=== PATIENT | female | born 1940 | race Caucasian/White ===

== ENCOUNTER 2017-11-18 16:52 | Inpatient (IN) | payer MEDICARE ==
[~2017-11-18] VITALS: Ht 149.9 cm; Wt 65.2 kg
[~2017-11-18 16:52] MED LIST: ALLO100T30 PO; CEFD300C37 PO; CEFO1VIA IVPB; EZET10TA18 PO; FURO-93 PO; FURO40TA6 PO; GLIP5TAB10 PO; LISI-420 PO; MELO7.5T5 PO; METF500T4 PO; METO50TA82 PO; METR500P29 IV; OMEP-110 PO; OMEP40CA6 PO; OXYC5TAB3 PO; PANT40GR IV; QUIN20TA PO; SPIR25TA PO; SPIR50TA PO; SUCR1ORA11 PO; TRAM-47 PO
[2017-11-18] MEDS ORDERED: pro air (18:16)
[2017-11-18] MEDS ORDERED: QUIN40TA PO (18:16)
[2017-11-18] MEDS ORDERED: CALC200V NAS (18:16)
[2017-11-18] MEDS ORDERED: FLUT9.9S NAS (18:16)
[2017-11-18] MEDS ORDERED: SIMV5TAB5 PO (18:16)
[2017-11-18] MEDS ORDERED: CLOT15CR4 TP (18:16)
[2017-11-18] MEDS ORDERED: FUROSEMIDE 40 MG/4 ML ONE (19:54)
[2017-11-18 19:59] LABS: BASOPHILS # (AUTO) 0.01 x10^3/uL (0-0.1); BASOPHILS % (AUTO) 0 % (0-1); EOSINOPHILS # (AUTO) 0.01 x10^3/uL (0-0.4); EOSINOPHILS % (AUTO) 0 % (1-7); LYMPHOCYTES % (AUTO) 13 % (22-44); MD NO; MEAN CORPUSCULAR HEMOGLOBIN 28.2 pg (27.0-34.8); MEAN CORPUSCULAR HGB CONC 31.4 g/dL (32.4-35.8); MEAN CORPUSCULAR VOLUME 89.8 fL (80-100); MEAN PLATELET VOLUME 7.2 fL (7.4-10.4); MONOCYTES # (AUTO) 0.35 x10^3/uL (0.2-0.8); MONOCYTES % (AUTO) 8 % (2-9); NEUTROPHILS # (AUTO) 3.75 x10^3/uL (1.8-6.8); NEUTROPHILS % (AUTO) 80 % (42-75); PLATELET COUNT 106 x10^3/uL (130-400); RED BLOOD COUNT 2.73 x10^6/uL (3.82-5.3); RED CELL DISTRIBUTION WIDTH 16.3 % (9.6-15.2)
[2017-11-18] MEDS ORDERED: FUROSEMIDE 40 MG/4 ML IV ONE (20:00)
[2017-11-18 20:09] LABS: ALANINE AMINOTRANSFERASE 22 U/L (12-78); ALBUMIN 2.8 g/dL (3.4-5.0); ANION GAP 10 mmol/L (5-15); CALCIUM 8.5 mg/dL (8.5-10.1); CHLORIDE 109 mmol/L (98-107); CREATININE 2.02 mg/dL (0.55-1.02)
[2017-11-18 20:11] LABS: ALKALINE PHOSPHATASE 130 U/L (45-117); BILIRUBIN,TOTAL 0.9 mg/dL (0.2-1.0); TOTAL PROTEIN 6.3 g/dL (6.4-8.2)
[2017-11-18] MEDS ORDERED: POLYETHYLENE GLYCOL 17 GM PACKET PO PRN (21:00)
[2017-11-18] MEDS ORDERED: BISACODYL 10 MG SUPP PR PRN (21:00)
[2017-11-18] MEDS ORDERED: ONDANSETRON 2MG/ML, 2ML IVPush PRN (21:00)
[2017-11-18 21:03] LABS: INTERNATIONAL NORMALIZED RATIO 1.21 (0.93-1.1); PROTHROMBIN TIME 12.4 Seconds (9.6-11.5)
[2017-11-18 21:33] VITALS: BP 134/63
[2017-11-18] MEDS ORDERED: LOPERAMIDE 2 MG CAPSULE PO ONE ×3 (22:30→23:00)
[2017-11-18 22:31] LABS: HEMOGLOBIN A1C 4.9 % (4.2-6.3)
[2017-11-18] MEDS: CLOTRIM/BETAMETH 1%/0.05% CRM TP SCH (22:52)
[2017-11-18] MEDS: INSULIN LISPRO 100 UNITS/ML, PEN SQ-INSULIN SCH (22:52)
[2017-11-18] MEDS: METOPROLOL TARTRATE 50 MG TABLET PO SCH (22:54)
[2017-11-18] MEDS: SIMVASTATIN 5 MG TABLET PO SCH (22:54)
[2017-11-18] MEDS: SODIUM CHLORIDE FLUSH 10ML SYR IVF SCH (22:54)
[2017-11-18] MEDS: SUCRALFATE 1 GM/10 ML UDC PO SCH (22:54)
[2017-11-18] MEDS ORDERED: ALBUTEROL SULFATE 2.5 MG/3 ML ONE (23:52)
[2017-11-19] VITALS (10 sets, daily range): BP systolic 117–140; BP diastolic 50–68
[2017-11-19] MEDS ORDERED: ALBUTEROL SULFATE 2.5 MG/3 ML NPPB PRN (01:00)
[2017-11-19 05:31] LABS: MEAN CORPUSCULAR HGB CONC 32.3 g/dL (32.4-35.8); MEAN CORPUSCULAR VOLUME 89.7 fL (80-100); RED BLOOD COUNT 2.54 x10^6/uL (3.82-5.3); RED CELL DISTRIBUTION WIDTH 16.3 % (9.6-15.2)
[2017-11-19 05:37] LABS: ALBUMIN 2.6 g/dL (3.4-5.0); ANION GAP 8 mmol/L (5-15); CALCIUM 8.2 mg/dL (8.5-10.1); CHLORIDE 111 mmol/L (98-107)
[2017-11-19 05:40] LABS: ALANINE AMINOTRANSFERASE 19 U/L (12-78); ALKALINE PHOSPHATASE 123 U/L (45-117); BILIRUBIN,TOTAL 0.9 mg/dL (0.2-1.0); CREATININE 1.84 mg/dL (0.55-1.02); TOTAL PROTEIN 5.8 g/dL (6.4-8.2)
[2017-11-19 06:08] LABS: BASOPHILS % (AUTO) 0 % (0-1); EOSINOPHILS # (AUTO) 0.05 x10^3/uL (0-0.4); EOSINOPHILS % (AUTO) 1 % (1-7); LYMPHOCYTES # (AUTO) 0.57 x10^3/uL (1-3.4); LYMPHOCYTES % (AUTO) 12 % (22-44); MD SCAN; MEAN PLATELET VOLUME 7.7 fL (7.4-10.4); MONOCYTES # (AUTO) 0.45 x10^3/uL (0.2-0.8); MONOCYTES % (AUTO) 9 % (2-9); NEUTROPHILS % (AUTO) 78 % (42-75); PLATELET COUNT 98 x10^3/uL (130-400)
[2017-11-19] MEDS: INSULIN LISPRO 100 UNITS/ML, PEN SQ-INSULIN SCH ×4 (07:00→20:10)
[2017-11-19] MEDS: CLOTRIM/BETAMETH 1%/0.05% CRM TP SCH ×2 (08:55→20:20)
[2017-11-19] MEDS: SENNA/DOCUSATE TABLET PO SCH (09:00)
[2017-11-19] MEDS: SODIUM CHLORIDE FLUSH 10ML SYR IVF SCH ×2 (09:00→21:00)
[2017-11-19] MEDS: FUROSEMIDE 20 MG/2 ML IV SCH ×2 (09:02→18:29)
[2017-11-19] MEDS: OMEPRAZOLE 20 MG CAPSULE.DR PO SCH (09:02)
[2017-11-19] MEDS: METOPROLOL TARTRATE 50 MG TABLET PO SCH ×2 (09:02→20:20)
[2017-11-19] MEDS: SUCRALFATE 1 GM/10 ML UDC PO SCH ×3 (09:02→20:19)
[2017-11-19] MEDS: ALLOPURINOL 100 MG TABLET PO SCH (09:07)
[2017-11-19 11:28] LABS: CLOSTRIDIUM DIFFICILE ANTIGEN NEGATIVE; CLOSTRIDIUM DIFFICILE TOXIN NEGATIVE (Negative)
[2017-11-19] MEDS ORDERED: PNEUMOCOCCAL 23 VACCINE IM-VACC ONE (11:30)
[2017-11-19] MEDS: CALCITONIN NASAL 200 UNITS/0.09ML, 3.7ML NAS SCH (11:49)
[2017-11-19] MEDS: FLUTICASONE NASAL SPRAY 16GM NAS SCH (11:49)
[2017-11-19] MEDS ORDERED: LIDOCAINE 1%, 20ML ONE (16:10)
[2017-11-19] MEDS ORDERED: LOPERAMIDE 2 MG CAPSULE PO SCH (17:00)
[2017-11-19] MEDS: LOPERAMIDE 2 MG CAPSULE PO SCH (17:25)
[2017-11-19] MEDS: ALBUMIN HUMAN 25% 100 ML IV SCH (18:29)
[2017-11-19] MEDS: SIMVASTATIN 5 MG TABLET PO SCH (20:20)
[2017-11-20 00:51] VITALS: BP 130/66
[2017-11-20 02:11] VITALS: BP 144/73
[2017-11-20] MEDS: ALBUMIN HUMAN 25% 100 ML IV SCH ×4 (02:13→20:30)
[2017-11-20 05:57] LABS: CHLORIDE 109 mmol/L (98-107)
[2017-11-20] MEDS: LOPERAMIDE 2 MG CAPSULE PO SCH ×3 (05:59→17:00)
[2017-11-20 06:12] LABS: MEAN CORPUSCULAR HEMOGLOBIN 29.9 pg (27.0-34.8); MEAN CORPUSCULAR HGB CONC 33.4 g/dL (32.4-35.8); MEAN CORPUSCULAR VOLUME 89.6 fL (80-100); MEAN PLATELET VOLUME 7.8 fL (7.4-10.4); PLATELET COUNT 71 x10^3/uL (130-400); RED BLOOD COUNT 3.16 x10^6/uL (3.82-5.3); RED CELL DISTRIBUTION WIDTH 15.6 % (9.6-15.2)
[2017-11-20 06:31] LABS: ALANINE AMINOTRANSFERASE 18 U/L (12-78); ALBUMIN 3.3 g/dL (3.4-5.0); ALKALINE PHOSPHATASE 104 U/L (45-117); ANION GAP 11 mmol/L (5-15); BILIRUBIN,TOTAL 1.7 mg/dL (0.2-1.0); CALCIUM 8.1 mg/dL (8.5-10.1); CREATININE 1.71 mg/dL (0.55-1.02)
[2017-11-20] MEDS: INSULIN LISPRO 100 UNITS/ML, PEN SQ-INSULIN SCH ×4 (07:00→21:00)
[2017-11-20 07:09] LABS: BASOPHILS % (AUTO) 0 % (0-1); EOSINOPHILS # (AUTO) 0.06 x10^3/uL (0-0.4); EOSINOPHILS % (AUTO) 1 % (1-7); LYMPHOCYTES # (AUTO) 0.52 x10^3/uL (1-3.4); LYMPHOCYTES % (AUTO) 12 % (22-44); MD SCAN; MONOCYTES # (AUTO) 0.41 x10^3/uL (0.2-0.8); MONOCYTES % (AUTO) 9 % (2-9); NEUTROPHILS # (AUTO) 3.44 x10^3/uL (1.8-6.8); NEUTROPHILS % (AUTO) 78 % (42-75)
[2017-11-20 07:46] VITALS: BP 145/60
[2017-11-20] MEDS ORDERED: ERGOCALCIFEROL 50,000 UNIT CAPSULE PO SCH (08:00)
[2017-11-20] MEDS: CLOTRIM/BETAMETH 1%/0.05% CRM TP SCH ×2 (09:00→21:00)
[2017-11-20] MEDS: SENNA/DOCUSATE TABLET PO SCH (09:00)
[2017-11-20] MEDS: SUCRALFATE 1 GM/10 ML UDC PO SCH ×3 (09:13→20:30)
[2017-11-20] MEDS: FLUTICASONE NASAL SPRAY 16GM NAS SCH (09:13)
[2017-11-20] MEDS: CALCITONIN NASAL 200 UNITS/0.09ML, 3.7ML NAS SCH (09:13)
[2017-11-20] MEDS: METOPROLOL TARTRATE 50 MG TABLET PO SCH ×2 (09:14→20:31)
[2017-11-20] MEDS: OMEPRAZOLE 20 MG CAPSULE.DR PO SCH (09:14)
[2017-11-20] MEDS: FUROSEMIDE 20 MG/2 ML IV SCH ×2 (09:15→17:20)
[2017-11-20] MEDS: SODIUM CHLORIDE FLUSH 10ML SYR IVF SCH ×2 (09:24→20:30)
[2017-11-20] MEDS: ALLOPURINOL 100 MG TABLET PO SCH (10:49)
[2017-11-20 13:12] VITALS: BP 150/55
[2017-11-20 20:00] VITALS: BP 149/69
[2017-11-20] MEDS: SIMVASTATIN 5 MG TABLET PO SCH (20:30)
[2017-11-21 02:30] VITALS: BP 167/72
[2017-11-21 04:45] LABS: MEAN CORPUSCULAR HEMOGLOBIN 29.7 pg (27.0-34.8); MEAN CORPUSCULAR HGB CONC 33.2 g/dL (32.4-35.8); MEAN CORPUSCULAR VOLUME 89.5 fL (80-100); RED BLOOD COUNT 3.03 x10^6/uL (3.82-5.3); RED CELL DISTRIBUTION WIDTH 15.9 % (9.6-15.2)
[2017-11-21 04:54] LABS: ANION GAP 9 mmol/L (5-15); CALCIUM 8.3 mg/dL (8.5-10.1); CHLORIDE 109 mmol/L (98-107)
[2017-11-21 04:55] LABS: CREATININE 1.56 mg/dL (0.55-1.02)
[2017-11-21 05:02] LABS: BASOPHILS # (AUTO) 0.01 x10^3/uL (0-0.1); BASOPHILS % (AUTO) 0 % (0-1); EOSINOPHILS # (AUTO) 0.04 x10^3/uL (0-0.4); EOSINOPHILS % (AUTO) 1 % (1-7); LYMPHOCYTES # (AUTO) 0.41 x10^3/uL (1-3.4); LYMPHOCYTES % (AUTO) 10 % (22-44); MD SCAN; MEAN PLATELET VOLUME 7.8 fL (7.4-10.4); MONOCYTES # (AUTO) 0.35 x10^3/uL (0.2-0.8); MONOCYTES % (AUTO) 9 % (2-9); NEUTROPHILS # (AUTO) 3.12 x10^3/uL (1.8-6.8); NEUTROPHILS % (AUTO) 80 % (42-75); PLATELET COUNT 56 x10^3/uL (130-400)
[2017-11-21] MEDS: LOPERAMIDE 2 MG CAPSULE PO SCH ×3 (06:00→17:00)
[2017-11-21 06:34] VITALS: BP 163/71
[2017-11-21] MEDS: INSULIN LISPRO 100 UNITS/ML, PEN SQ-INSULIN SCH ×4 (07:00→20:35)
[2017-11-21] MEDS: METOPROLOL TARTRATE 50 MG TABLET PO SCH ×2 (08:21→20:35)
[2017-11-21] MEDS: CALCITONIN NASAL 200 UNITS/0.09ML, 3.7ML NAS SCH (08:21)
[2017-11-21] MEDS: FLUTICASONE NASAL SPRAY 16GM NAS SCH (08:21)
[2017-11-21] MEDS: OMEPRAZOLE 20 MG CAPSULE.DR PO SCH (08:21)
[2017-11-21] MEDS: SUCRALFATE 1 GM/10 ML UDC PO SCH ×3 (08:21→20:35)
[2017-11-21] MEDS: FUROSEMIDE 20 MG/2 ML IV SCH ×2 (08:22→17:15)
[2017-11-21] MEDS: SENNA/DOCUSATE TABLET PO SCH ×2 (08:22→17:14)
[2017-11-21] MEDS: CLOTRIM/BETAMETH 1%/0.05% CRM TP SCH ×2 (08:22→20:36)
[2017-11-21] MEDS: SODIUM CHLORIDE FLUSH 10ML SYR IVF SCH ×2 (08:22→20:36)
[2017-11-21] MEDS: ALLOPURINOL 100 MG TABLET PO SCH (08:22)
[2017-11-21] MEDS: LISINOPRIL 20 MG TABLET PO SCH (12:24)
[2017-11-21 13:39] VITALS: BP 144/65
[2017-11-21 18:51] VITALS: BP 138/61
[2017-11-21] MEDS: SIMVASTATIN 5 MG TABLET PO SCH (20:35)
[2017-11-22 02:02] VITALS: BP 127/51
[2017-11-22 05:23] LABS: ANION GAP 9 mmol/L (5-15); CHLORIDE 109 mmol/L (98-107)
[2017-11-22 05:28] LABS: ALANINE AMINOTRANSFERASE 12 U/L (12-78); ALKALINE PHOSPHATASE 93 U/L (45-117); BILIRUBIN,TOTAL 1.4 mg/dL (0.2-1.0); CREATININE 1.33 mg/dL (0.55-1.02); TOTAL PROTEIN 5.3 g/dL (6.4-8.2)
[2017-11-22] MEDS: LOPERAMIDE 2 MG CAPSULE PO SCH ×2 (06:00→11:00)
[2017-11-22 06:57] VITALS: BP 133/59
[2017-11-22] MEDS: INSULIN LISPRO 100 UNITS/ML, PEN SQ-INSULIN SCH ×2 (07:00→11:39)
[2017-11-22] MEDS: FUROSEMIDE 20 MG/2 ML IV SCH (07:43)
[2017-11-22] MEDS: SODIUM CHLORIDE FLUSH 10ML SYR IVF SCH (08:46)
[2017-11-22] MEDS: METOPROLOL TARTRATE 50 MG TABLET PO SCH (08:47)
[2017-11-22] MEDS: ALLOPURINOL 100 MG TABLET PO SCH (08:47)
[2017-11-22] MEDS: SENNA/DOCUSATE TABLET PO SCH (08:47)
[2017-11-22] MEDS: OMEPRAZOLE 20 MG CAPSULE.DR PO SCH (08:47)
[2017-11-22] MEDS: CALCITONIN NASAL 200 UNITS/0.09ML, 3.7ML NAS SCH (08:48)
[2017-11-22] MEDS: CLOTRIM/BETAMETH 1%/0.05% CRM TP SCH (08:48)
[2017-11-22] MEDS: FLUTICASONE NASAL SPRAY 16GM NAS SCH (08:48)
[2017-11-22] MEDS: LISINOPRIL 20 MG TABLET PO SCH (08:48)
[2017-11-22] MEDS: SUCRALFATE 1 GM/10 ML UDC PO SCH (08:48)
[2017-11-22 13:32] VITALS: BP 135/54
[2017-11-22] MEDS ORDERED: FURO40TA6 PO (13:51)
[2017-11-22] MEDS ORDERED: LISI-170 PO (13:51)
[2017-11-22] MEDS ORDERED: METO50TA82 PO (13:51)
[2017-11-22] MEDS ORDERED: MAGN64TA7 PO (13:51)
[2017-11-22] MEDS ORDERED: ERGO500017 PO (13:51)
[2017-11-22] MEDS ORDERED: POTA20TA91 PO (13:51)
== END 2017-11-22 15:38 | disposition home health service (06) | DRG 432 ==
LOC: ED 21:03 → EDIP 21:16 → 4WST 21:44 → DCLOUNGE 11-22 15:26
PROVIDERS: ADMIT Hospitalist; ATTEND Hospitalist
PROC: 30233N1 Transfusion of Nonautologous Red Blood Cells into Peripheral Vein, Percutaneous Approach (ICD-10-PCS; principal; 2017-11-19)
PROC: 0W9G3ZZ Drainage of Peritoneal Cavity, Percutaneous Approach (ICD-10-PCS; 2017-11-19)
PROC: 0W9B3ZZ Drainage of Left Pleural Cavity, Percutaneous Approach (ICD-10-PCS; 2017-11-21)
PROC: 0W993ZZ Drainage of Right Pleural Cavity, Percutaneous Approach (ICD-10-PCS; 2017-11-21)
DX: K70.31 Alcoholic cirrhosis of liver with ascites (principal); I50.21 Acute systolic (congestive) heart failure; J96.01 Acute respiratory failure with hypoxia; N17.0 Acute kidney failure with tubular necrosis; E43 Unspecified severe protein-calorie malnutrition; D68.59 Other primary thrombophilia; E11.21 Type 2 diabetes mellitus with diabetic nephropathy; D69.6 Thrombocytopenia, unspecified; I13.0 Hypertensive heart and chronic kidney disease with heart failure and stage 1 through stage 4 chronic kidney disease, or unspecified chronic kidney disease; J44.1 Chronic obstructive pulmonary disease with (acute) exacerbation; K76.6 Portal hypertension; E11.22 Type 2 diabetes mellitus with diabetic chronic kidney disease; D64.9 Anemia, unspecified; E78.5 Hyperlipidemia, unspecified; E11.40 Type 2 diabetes mellitus with diabetic neuropathy, unspecified; E55.9 Vitamin D deficiency, unspecified; I27.20 Pulmonary hypertension, unspecified; I25.2 Old myocardial infarction; I34.0 Nonrheumatic mitral (valve) insufficiency; N18.2 Chronic kidney disease, stage 2 (mild); Z66 Do not resuscitate; Z85.41 Personal history of malignant neoplasm of cervix uteri; Z87.891 Personal history of nicotine dependence; Z68.29 Body mass index [BMI] 29.0-29.9, adult
CPT/HCPCS: 32555; 36415; 36430; 49083; 71046; 80048; 80053; 82042; 82306; 82607; 82962; 83036; 83615; 83735; 83880; 84100; 84157; 85025; 85610; 86850; 86870; 86900; 86902; 86922; 86923; 87070; 87205; 87324; 89051; 90732; 93005; 93306; 94640; 96374; J1940; J3490; P9047; J1815; P9016

== ENCOUNTER 2018-03-01 18:28 | Inpatient (IN) | payer MEDICARE ==
[~2018-03-01] VITALS: Ht 152.4 cm; Wt 66.6 kg
[~2018-03-01 18:28] MED LIST changes: +CALC200V NAS; +CLOT15CR4 TP; +ERGO500017 PO; +FLUT9.9S NAS; +LISI-170 PO; +MAGN64TA7 PO; +POTA20TA91 PO; +QUIN40TA PO; +SIMV5TAB5 PO; +pro air
[2018-03-01 19:34] LABS: MD YES; MEAN CORPUSCULAR HEMOGLOBIN 27.8 pg (27.0-34.8); MEAN CORPUSCULAR HGB CONC 33.3 g/dL (32.4-35.8); MEAN CORPUSCULAR VOLUME 83.6 fL (80-100); MEAN PLATELET VOLUME 7.1 fL (7.4-10.4); PLATELET COUNT 82 x10^3/uL (130-400); RED BLOOD COUNT 2.66 x10^6/uL (3.82-5.3); RED CELL DISTRIBUTION WIDTH 17.1 % (9.6-15.2)
[2018-03-01 19:41] LABS: INTERNATIONAL NORMALIZED RATIO 1.1 (0.93-1.1); PROTHROMBIN TIME 11.4 Seconds (9.6-11.5)
[2018-03-01 19:44] LABS: ALANINE AMINOTRANSFERASE 28 U/L (12-78); ANION GAP 12 mmol/L (5-15); CALCIUM 8.1 mg/dL (8.5-10.1); CHLORIDE 89 mmol/L (98-107)
[2018-03-01 19:47] LABS: ALKALINE PHOSPHATASE 139 U/L (45-117); BILIRUBIN,TOTAL 0.6 mg/dL (0.2-1.0); TOTAL PROTEIN 6.2 g/dL (6.4-8.2)
[2018-03-01] MEDS ORDERED: FURO20TA3 PO (19:56)
[2018-03-01 19:58] LABS: LYMPH#(MANUAL) 0.29 x10^3/uL (1-3.4); LYMPHS% (MANUAL) 7 % (22-44); MONOS#(MANUAL) 0.13 x10^3/uL (0.3-2.7); MONOS% (MANUAL) 3 % (2-9); SEG#(MANUAL) 3.78 x10^3/uL (1.8-6.8); SEGS% (MANUAL) 90 % (42-75)
[2018-03-01 19:59] LABS: ACANTHOCYTES 1+; ANISOCYTOSIS 2+; MICROCYTOSIS 1+
[2018-03-01 20:00] LABS: <PLATELET ESTIMATE> DECREASED; <PLT MORPHOLOGY> NORMAL PLT MORPH
[2018-03-01] MEDS ORDERED: SODIUM CHLORIDE 0.9% 1,000 ML IV ONE (20:01)
[2018-03-01] MEDS ORDERED: SODIUM CHLORIDE 0.9% 1,000 ML IV SCH (20:34)
[2018-03-01] MEDS ORDERED: POLYETHYLENE GLYCOL 17 GM PACKET PO PRN (21:00)
[2018-03-01] MEDS ORDERED: SODIUM CHLORIDE FLUSH 10ML SYR IVF PRN (21:00)
[2018-03-01] MEDS ORDERED: NS + 20MEQ KCL 1,000 ML IV SCH (21:00)
[2018-03-01] MEDS ORDERED: ONDANSETRON 2MG/ML, 2ML IVPush PRN (21:00)
[2018-03-01] MEDS ORDERED: ERGOCALCIFEROL 50,000 UNIT CAPSULE PO SCH (21:00)
[2018-03-01] MEDS ORDERED: BISACODYL 10 MG SUPP PR PRN (21:00)
[2018-03-01] MEDS ORDERED: ALBUTEROL SULFATE 2.5 MG/3 ML NPPB PRN (22:30)
[2018-03-01] MEDS: SIMVASTATIN 5 MG TABLET PO SCH (22:32)
[2018-03-01] MEDS: METOPROLOL TARTRATE 50 MG TABLET PO SCH (22:34)
[2018-03-02] VITALS (13 sets, daily range): BP systolic 107–137; BP diastolic 54–70
[2018-03-02] MEDS ORDERED: CALC3.7S5 NS (04:25)
[2018-03-02] MEDS ORDERED: SUCR1TAB PO (05:18)
[2018-03-02] MEDS ORDERED: GLUC15006 PO (05:18)
[2018-03-02] MEDS ORDERED: GLIP5TAB10 PO (05:18)
[2018-03-02] MEDS: SENNA/DOCUSATE TABLET PO SCH (09:27)
[2018-03-02] MEDS: OMEPRAZOLE 20 MG CAPSULE.DR PO SCH (09:28)
[2018-03-02] MEDS: METOPROLOL TARTRATE 50 MG TABLET PO SCH ×2 (09:28→21:24)
[2018-03-02 09:35] LABS: ALANINE AMINOTRANSFERASE 26 U/L (12-78); ALBUMIN 2.5 g/dL (3.4-5.0); ANION GAP 9 mmol/L (5-15); CALCIUM 7.6 mg/dL (8.5-10.1); CHLORIDE 94 mmol/L (98-107); CREATININE 1.42 mg/dL (0.55-1.02)
[2018-03-02 09:37] LABS: ALKALINE PHOSPHATASE 127 U/L (45-117); BILIRUBIN,TOTAL 2.1 mg/dL (0.2-1.0); TOTAL PROTEIN 5.4 g/dL (6.4-8.2)
[2018-03-02 09:42] LABS: BASOPHILS # (AUTO) 0.05 x10^3/uL (0-0.1); BASOPHILS % (AUTO) 1 % (0-1); EOSINOPHILS # (AUTO) 0.04 x10^3/uL (0-0.4); EOSINOPHILS % (AUTO) 1 % (1-7); LYMPHOCYTES # (AUTO) 0.37 x10^3/uL (1-3.4); LYMPHOCYTES % (AUTO) 7 % (22-44); MD SCAN; MEAN CORPUSCULAR HEMOGLOBIN 27.6 pg (27.0-34.8); MEAN CORPUSCULAR VOLUME 83.7 fL (80-100); MONOCYTES # (AUTO) 0.26 x10^3/uL (0.2-0.8); MONOCYTES % (AUTO) 5 % (2-9); NEUTROPHILS # (AUTO) 4.79 x10^3/uL (1.8-6.8); NEUTROPHILS % (AUTO) 87 % (42-75); PLATELET COUNT 75 x10^3/uL (130-400); RED BLOOD COUNT 3.22 x10^6/uL (3.82-5.3); RED CELL DISTRIBUTION WIDTH 16.1 % (9.6-15.2)
[2018-03-02] MEDS: SUCRALFATE 1 GM TABLET PO SCH ×2 (17:27→21:24)
[2018-03-02 17:38] LABS: MEAN CORPUSCULAR HEMOGLOBIN 28.2 pg (27.0-34.8); MEAN CORPUSCULAR HGB CONC 33.6 g/dL (32.4-35.8); MEAN CORPUSCULAR VOLUME 83.7 fL (80-100); MEAN PLATELET VOLUME 7.3 fL (7.4-10.4); PLATELET COUNT 78 x10^3/uL (130-400); RED BLOOD COUNT 3.58 x10^6/uL (3.82-5.3); RED CELL DISTRIBUTION WIDTH 16.1 % (9.6-15.2)
[2018-03-02 17:46] LABS: ANION GAP 10 mmol/L (5-15); CALCIUM 8.5 mg/dL (8.5-10.1); CHLORIDE 95 mmol/L (98-107); CREATININE 1.57 mg/dL (0.55-1.02)
[2018-03-02 17:54] LABS: BASOPHILS # (AUTO) 0.01 x10^3/uL (0-0.1); BASOPHILS % (AUTO) 0 % (0-1); EOSINOPHILS # (AUTO) 0.03 x10^3/uL (0-0.4); EOSINOPHILS % (AUTO) 0 % (1-7); LYMPHOCYTES # (AUTO) 0.48 x10^3/uL (1-3.4); LYMPHOCYTES % (AUTO) 7 % (22-44); MD SCAN; MONOCYTES % (AUTO) 4 % (2-9); NEUTROPHILS # (AUTO) 6.24 x10^3/uL (1.8-6.8); NEUTROPHILS % (AUTO) 89 % (42-75)
[2018-03-02] MEDS ORDERED: NS + 20MEQ KCL 1,000 ML IV SCH (21:00)
[2018-03-02] MEDS: SIMVASTATIN 5 MG TABLET PO SCH (21:24)
[2018-03-03 00:46] VITALS: BP 116/70
[2018-03-03 05:20] LABS: MEAN CORPUSCULAR HEMOGLOBIN 27.7 pg (27.0-34.8); MEAN CORPUSCULAR HGB CONC 32.7 g/dL (32.4-35.8); MEAN CORPUSCULAR VOLUME 84.7 fL (80-100); RED CELL DISTRIBUTION WIDTH 16.8 % (9.6-15.2)
[2018-03-03 05:27] LABS: CHLORIDE 98 mmol/L (98-107)
[2018-03-03 05:31] LABS: ALANINE AMINOTRANSFERASE 22 U/L (12-78); ALBUMIN 2.3 g/dL (3.4-5.0); ALKALINE PHOSPHATASE 105 U/L (45-117); ANION GAP 10 mmol/L (5-15); BILIRUBIN,TOTAL 0.9 mg/dL (0.2-1.0); CREATININE 1.52 mg/dL (0.55-1.02)
[2018-03-03 05:39] LABS: BASOPHILS # (AUTO) 0.01 x10^3/uL (0-0.1); BASOPHILS % (AUTO) 0 % (0-1); EOSINOPHILS # (AUTO) 0.08 x10^3/uL (0-0.4); EOSINOPHILS % (AUTO) 2 % (1-7); LYMPHOCYTES # (AUTO) 0.45 x10^3/uL (1-3.4); LYMPHOCYTES % (AUTO) 9 % (22-44); MD SCAN; MEAN PLATELET VOLUME 7.7 fL (7.4-10.4); MONOCYTES # (AUTO) 0.39 x10^3/uL (0.2-0.8); MONOCYTES % (AUTO) 8 % (2-9); NEUTROPHILS # (AUTO) 4.22 x10^3/uL (1.8-6.8); NEUTROPHILS % (AUTO) 82 % (42-75); PLATELET COUNT 63 x10^3/uL (130-400)
[2018-03-03 06:27] VITALS: BP 115/53
[2018-03-03] MEDS: SENNA/DOCUSATE TABLET PO SCH ×2 (09:00→10:04)
[2018-03-03] MEDS: METOPROLOL TARTRATE 50 MG TABLET PO SCH ×2 (10:03→20:37)
[2018-03-03] MEDS: ALLOPURINOL 100 MG TABLET PO SCH (10:04)
[2018-03-03] MEDS: LISINOPRIL 20 MG TABLET PO SCH (10:04)
[2018-03-03] MEDS: SUCRALFATE 1 GM TABLET PO SCH ×3 (10:04→20:36)
[2018-03-03] MEDS: OMEPRAZOLE 20 MG CAPSULE.DR PO SCH (10:04)
[2018-03-03 14:03] VITALS: BP 138/70
[2018-03-03 20:32] VITALS: BP 138/62
[2018-03-03] MEDS: SIMVASTATIN 5 MG TABLET PO SCH (20:36)
[2018-03-04 01:19] VITALS: BP 127/67
[2018-03-04 05:49] LABS: ANION GAP 10 mmol/L (5-15); CALCIUM 8.1 mg/dL (8.5-10.1); CHLORIDE 97 mmol/L (98-107)
[2018-03-04 05:50] LABS: CREATININE 1.59 mg/dL (0.55-1.02)
[2018-03-04 05:53] LABS: MEAN CORPUSCULAR HEMOGLOBIN 27.8 pg (27.0-34.8); MEAN CORPUSCULAR HGB CONC 32.7 g/dL (32.4-35.8); MEAN CORPUSCULAR VOLUME 84.9 fL (80-100); RED BLOOD COUNT 3.12 x10^6/uL (3.82-5.3); RED CELL DISTRIBUTION WIDTH 16.5 % (9.6-15.2)
[2018-03-04 06:16] LABS: BASOPHILS # (AUTO) 0.01 x10^3/uL (0-0.1); BASOPHILS % (AUTO) 0 % (0-1); EOSINOPHILS # (AUTO) 0.03 x10^3/uL (0-0.4); EOSINOPHILS % (AUTO) 1 % (1-7); LYMPHOCYTES # (AUTO) 0.57 x10^3/uL (1-3.4); LYMPHOCYTES % (AUTO) 9 % (22-44); MD SCAN; MEAN PLATELET VOLUME 7.8 fL (7.4-10.4); MONOCYTES # (AUTO) 0.61 x10^3/uL (0.2-0.8); MONOCYTES % (AUTO) 10 % (2-9); NEUTROPHILS % (AUTO) 81 % (42-75); PLATELET COUNT 74 x10^3/uL (130-400)
[2018-03-04 06:43] VITALS: BP 138/68
[2018-03-04] MEDS: SENNA/DOCUSATE TABLET PO SCH (09:00)
[2018-03-04] MEDS: ALLOPURINOL 100 MG TABLET PO SCH (12:28)
[2018-03-04] MEDS: OMEPRAZOLE 20 MG CAPSULE.DR PO SCH (12:28)
[2018-03-04] MEDS: METOPROLOL TARTRATE 50 MG TABLET PO SCH ×2 (12:28→20:44)
[2018-03-04] MEDS: SUCRALFATE 1 GM TABLET PO SCH ×3 (12:29→20:43)
[2018-03-04] MEDS: LISINOPRIL 20 MG TABLET PO SCH (12:29)
[2018-03-04 13:18] LABS: OSMOLALITY,URINE 245 mOsm/kg (500-850)
[2018-03-04 14:30] VITALS: BP 130/70
[2018-03-04 19:18] VITALS: BP 152/72
[2018-03-04] MEDS: SIMVASTATIN 5 MG TABLET PO SCH (20:43)
[2018-03-05 02:41] VITALS: BP 135/76
[2018-03-05 05:59] LABS: ALBUMIN 2.2 g/dL (3.4-5.0); ANION GAP 9 mmol/L (5-15); CALCIUM 8.2 mg/dL (8.5-10.1); CHLORIDE 98 mmol/L (98-107)
[2018-03-05 06:03] LABS: ALANINE AMINOTRANSFERASE 29 U/L (12-78); ALKALINE PHOSPHATASE 144 U/L (45-117); BILIRUBIN,TOTAL 0.8 mg/dL (0.2-1.0); CREATININE 1.66 mg/dL (0.55-1.02); MEAN CORPUSCULAR HEMOGLOBIN 27.7 pg (27.0-34.8); MEAN CORPUSCULAR HGB CONC 32.8 g/dL (32.4-35.8); MEAN CORPUSCULAR VOLUME 84.5 fL (80-100); MEAN PLATELET VOLUME 7.6 fL (7.4-10.4); PLATELET COUNT 80 x10^3/uL (130-400); RED BLOOD COUNT 3.02 x10^6/uL (3.82-5.3); RED CELL DISTRIBUTION WIDTH 16.4 % (9.6-15.2); TOTAL PROTEIN 5.1 g/dL (6.4-8.2)
[2018-03-05 06:24] LABS: BASOPHILS # (AUTO) 0.01 x10^3/uL (0-0.1); BASOPHILS % (AUTO) 0 % (0-1); EOSINOPHILS # (AUTO) 0.05 x10^3/uL (0-0.4); EOSINOPHILS % (AUTO) 1 % (1-7); LYMPHOCYTES # (AUTO) 0.48 x10^3/uL (1-3.4); LYMPHOCYTES % (AUTO) 10 % (22-44); MD SCAN; MONOCYTES # (AUTO) 0.53 x10^3/uL (0.2-0.8); MONOCYTES % (AUTO) 11 % (2-9); NEUTROPHILS # (AUTO) 3.67 x10^3/uL (1.8-6.8); NEUTROPHILS % (AUTO) 77 % (42-75)
[2018-03-05 07:19] VITALS: BP 135/64
[2018-03-05] MEDS: OMEPRAZOLE 20 MG CAPSULE.DR PO SCH (08:08)
[2018-03-05] MEDS: ALLOPURINOL 100 MG TABLET PO SCH (08:08)
[2018-03-05] MEDS: SUCRALFATE 1 GM TABLET PO SCH (08:08)
[2018-03-05] MEDS: LISINOPRIL 20 MG TABLET PO SCH (08:09)
[2018-03-05] MEDS: METOPROLOL TARTRATE 50 MG TABLET PO SCH (08:09)
[2018-03-05] MEDS: SENNA/DOCUSATE TABLET PO SCH (08:12)
== END 2018-03-05 10:26 | disposition home or self-care (01) | DRG 432 ==
LOC: ED 21:06 → EDIP 21:14 → 3NE 21:30
PROVIDERS: ADMIT Hospitalist; ATTEND Hospitalist
PROC: 30233N1 Transfusion of Nonautologous Red Blood Cells into Peripheral Vein, Percutaneous Approach (ICD-10-PCS; principal; 2018-03-02)
DX: K70.31 Alcoholic cirrhosis of liver with ascites (principal); J96.01 Acute respiratory failure with hypoxia; E44.0 Moderate protein-calorie malnutrition; J90 Pleural effusion, not elsewhere classified; D69.6 Thrombocytopenia, unspecified; E11.21 Type 2 diabetes mellitus with diabetic nephropathy; N18.3 Chronic kidney disease, stage 3 (moderate); E11.22 Type 2 diabetes mellitus with diabetic chronic kidney disease; E11.40 Type 2 diabetes mellitus with diabetic neuropathy, unspecified; I13.0 Hypertensive heart and chronic kidney disease with heart failure and stage 1 through stage 4 chronic kidney disease, or unspecified chronic kidney disease; I50.22 Chronic systolic (congestive) heart failure; E87.1 Hypo-osmolality and hyponatremia; J44.0 Chronic obstructive pulmonary disease with (acute) lower respiratory infection; K76.6 Portal hypertension; J98.11 Atelectasis; Z66 Do not resuscitate; D63.8 Anemia in other chronic diseases classified elsewhere; E87.6 Hypokalemia; F10.20 Alcohol dependence, uncomplicated; Z60.2 Problems related to living alone; E66.9 Obesity, unspecified; E78.5 Hyperlipidemia, unspecified; E86.0 Dehydration; K64.9 Unspecified hemorrhoids; Z80.0 Family history of malignant neoplasm of digestive organs; Z80.1 Family history of malignant neoplasm of trachea, bronchus and lung; Z82.3 Family history of stroke; Z82.5 Family history of asthma and other chronic lower respiratory diseases; Z85.41 Personal history of malignant neoplasm of cervix uteri; Z87.891 Personal history of nicotine dependence; Z90.49 Acquired absence of other specified parts of digestive tract; Z88.5 Allergy status to narcotic agent; Z88.2 Allergy status to sulfonamides; Z88.8 Allergy status to other drugs, medicaments and biological substances; Z88.6 Allergy status to analgesic agent; Z88.1 Allergy status to other antibiotic agents; Z91.041 Radiographic dye allergy status
CPT/HCPCS: 36415; 36430; 71045; 80048; 80053; 83036; 83690; 83930; 83935; 85025; 85610; 85730; 86850; 86870; 86900; 86902; 86922; 86923; 93005; 96360; 99285; J3480; J7030; P9016

== ENCOUNTER 2018-03-09 16:46 | Inpatient (IN) | payer MEDICARE ==
[~2018-03-09] VITALS: Ht 152.4 cm; Wt 87.9 kg
[~2018-03-09 16:46] MED LIST changes: +CALC3.7S5 NS; +FURO20TA3 PO; +GLUC15006 PO; +SUCR1TAB PO
[2018-03-09] MEDS ORDERED: SODIUM CHLORIDE FLUSH 10ML SYR IVF ONE (17:30)
[2018-03-09 17:31] LABS: ALANINE AMINOTRANSFERASE 29 U/L (12-78); ALBUMIN 2.6 g/dL (3.4-5.0); ANION GAP 7 mmol/L (5-15); CHLORIDE 98 mmol/L (98-107)
[2018-03-09 17:36] LABS: CREATININE 1.57 mg/dL (0.55-1.02)
[2018-03-09 17:37] LABS: ALKALINE PHOSPHATASE 209 U/L (45-117); BILIRUBIN,TOTAL 0.5 mg/dL (0.2-1.0); TOTAL PROTEIN 5.9 g/dL (6.4-8.2)
[2018-03-09 17:45] LABS: BASOPHILS # (AUTO) 0.01 x10^3/uL (0-0.1); BASOPHILS % (AUTO) 0 % (0-1); EOSINOPHILS % (AUTO) 0 % (1-7); LYMPHOCYTES # (AUTO) 0.58 x10^3/uL (1-3.4); LYMPHOCYTES % (AUTO) 13 % (22-44); MD NO; MEAN CORPUSCULAR HEMOGLOBIN 27.3 pg (27.0-34.8); MEAN CORPUSCULAR HGB CONC 32.7 g/dL (32.4-35.8); MEAN CORPUSCULAR VOLUME 83.4 fL (80-100); MEAN PLATELET VOLUME 6.9 fL (7.4-10.4); MONOCYTES # (AUTO) 0.44 x10^3/uL (0.2-0.8); MONOCYTES % (AUTO) 10 % (2-9); NEUTROPHILS # (AUTO) 3.34 x10^3/uL (1.8-6.8); NEUTROPHILS % (AUTO) 76 % (42-75); PLATELET COUNT 116 x10^3/uL (130-400); RED BLOOD COUNT 3.35 x10^6/uL (3.82-5.3)
[2018-03-09 18:23] LABS: INTERNATIONAL NORMALIZED RATIO 1.1 (0.93-1.1); PROTHROMBIN TIME 11.4 Seconds (9.6-11.5)
[2018-03-09 18:46] LABS: MICROSCOPIC AUTO
[2018-03-09 18:48] LABS: CULTURE INDICATED? NO
[2018-03-09] MEDS ORDERED: SODIUM CHLORIDE FLUSH 10ML SYR IVF PRN (20:00)
[2018-03-09] MEDS ORDERED: LIDOCAINE 2%, 20ML ONE (20:08)
[2018-03-09] MEDS ORDERED: ONDANSETRON 2MG/ML, 2ML IVPush PRN (20:30)
[2018-03-09] MEDS ORDERED: POLYETHYLENE GLYCOL 17 GM PACKET PO PRN (20:30)
[2018-03-09] MEDS ORDERED: BISACODYL 10 MG SUPP PR PRN (20:30)
[2018-03-09] MEDS ORDERED: ERGOCALCIFEROL 50,000 UNIT CAPSULE PO SCH (20:30)
[2018-03-09] MEDS: SUCRALFATE 1 GM TABLET PO SCH (21:00)
[2018-03-09] MEDS ORDERED: FURO40TA6 PO (21:20)
[2018-03-09 22:25] VITALS: BP 161/67
[2018-03-09] MEDS: HEPARIN 5,000 UNITS/ML, 1ML SQ SCH (22:58)
[2018-03-09] MEDS: FUROSEMIDE 20 MG/2 ML IV SCH (22:58)
[2018-03-09] MEDS: LACTULOSE 20 GM/30 ML UDC PO SCH (22:58)
[2018-03-09] MEDS: METOPROLOL TARTRATE 50 MG TABLET PO SCH (22:59)
[2018-03-09] MEDS: SODIUM CHLORIDE FLUSH 10ML SYR IVF SCH (22:59)
[2018-03-09] MEDS: SIMVASTATIN 5 MG TABLET PO SCH (22:59)
[2018-03-10 02:00] VITALS: BP 148/54
[2018-03-10 05:10] LABS: CALCIUM 8.1 mg/dL (8.5-10.1); CHLORIDE 99 mmol/L (98-107)
[2018-03-10 05:11] LABS: BASOPHILS # (AUTO) 0.01 x10^3/uL (0-0.1); BASOPHILS % (AUTO) 0 % (0-1); EOSINOPHILS # (AUTO) 0.07 x10^3/uL (0-0.4); EOSINOPHILS % (AUTO) 2 % (1-7); LYMPHOCYTES # (AUTO) 0.61 x10^3/uL (1-3.4); LYMPHOCYTES % (AUTO) 18 % (22-44); MD NO; MEAN CORPUSCULAR HEMOGLOBIN 27.5 pg (27.0-34.8); MEAN CORPUSCULAR HGB CONC 32.9 g/dL (32.4-35.8); MEAN CORPUSCULAR VOLUME 83.4 fL (80-100); MEAN PLATELET VOLUME 7.2 fL (7.4-10.4); MONOCYTES # (AUTO) 0.38 x10^3/uL (0.2-0.8); MONOCYTES % (AUTO) 11 % (2-9); NEUTROPHILS # (AUTO) 2.37 x10^3/uL (1.8-6.8); NEUTROPHILS % (AUTO) 69 % (42-75); PLATELET COUNT 105 x10^3/uL (130-400); RED BLOOD COUNT 3.09 x10^6/uL (3.82-5.3); RED CELL DISTRIBUTION WIDTH 17.1 % (9.6-15.2)
[2018-03-10 05:15] LABS: ALANINE AMINOTRANSFERASE 25 U/L (12-78); ALBUMIN 2.3 g/dL (3.4-5.0); ALKALINE PHOSPHATASE 163 U/L (45-117); ANION GAP 8 mmol/L (5-15); BILIRUBIN,TOTAL 0.6 mg/dL (0.2-1.0); CREATININE 1.48 mg/dL (0.55-1.02); TOTAL PROTEIN 5.2 g/dL (6.4-8.2)
[2018-03-10] MEDS: FUROSEMIDE 20 MG/2 ML IV SCH ×2 (07:32→15:53)
[2018-03-10] MEDS: HEPARIN 5,000 UNITS/ML, 1ML SQ SCH ×2 (07:33→15:53)
[2018-03-10] MEDS: SUCRALFATE 1 GM TABLET PO SCH ×3 (07:33→15:53)
[2018-03-10 08:10] VITALS: BP 154/59
[2018-03-10] MEDS: CALCITONIN NASAL 200 UNITS/0.09ML, 3.7ML NAS SCH (09:00)
[2018-03-10] MEDS: TEMPLATE NON-FORMULARY MED. (Glucosamine Hcl** 1,500 MG) HOMEMEDPO SCH (09:00)
[2018-03-10] MEDS: SENNA/DOCUSATE TABLET PO SCH (09:00)
[2018-03-10] MEDS: LACTULOSE 20 GM/30 ML UDC PO SCH ×2 (09:26→22:26)
[2018-03-10] MEDS: METOPROLOL TARTRATE 50 MG TABLET PO SCH (09:27)
[2018-03-10] MEDS: SODIUM CHLORIDE FLUSH 10ML SYR IVF SCH ×2 (09:27→22:28)
[2018-03-10] MEDS: OMEPRAZOLE 20 MG CAPSULE.DR PO SCH (09:27)
[2018-03-10] MEDS: ALLOPURINOL 100 MG TABLET PO SCH (09:27)
[2018-03-10] MEDS: LISINOPRIL 20 MG TABLET PO SCH (09:27)
[2018-03-10] MEDS ORDERED: DEXTROSE 4 GM TAB.CHEW PO PRN (10:00)
[2018-03-10] MEDS ORDERED: GLUCAGON 1 MG IM PRN (10:00)
[2018-03-10] MEDS ORDERED: DEXTROSE 50%, 50ML SYRINGE IVPush PRN (10:00)
[2018-03-10] MEDS: INSULIN LISPRO 100 UNITS/ML, PEN SQ-INSULIN SCH ×3 (11:00→21:00)
[2018-03-10 12:27] VITALS: BP 162/64
[2018-03-10 19:08] VITALS: BP 148/62
[2018-03-10] MEDS: SIMVASTATIN 5 MG TABLET PO SCH (22:27)
[2018-03-10] MEDS: METOPROLOL TARTRATE 25 MG TABLET PO SCH (22:27)
[2018-03-11] MEDS: HEPARIN 5,000 UNITS/ML, 1ML SQ SCH ×2 (00:06→08:00)
[2018-03-11 00:23] VITALS: BP 134/53
[2018-03-11 05:14] LABS: BASOPHILS # (AUTO) 0.01 x10^3/uL (0-0.1); BASOPHILS % (AUTO) 0 % (0-1); EOSINOPHILS # (AUTO) 0.16 x10^3/uL (0-0.4); EOSINOPHILS % (AUTO) 4 % (1-7); LYMPHOCYTES # (AUTO) 0.71 x10^3/uL (1-3.4); LYMPHOCYTES % (AUTO) 19 % (22-44); MD NO; MEAN CORPUSCULAR HEMOGLOBIN 27.5 pg (27.0-34.8); MEAN CORPUSCULAR HGB CONC 32.8 g/dL (32.4-35.8); MEAN CORPUSCULAR VOLUME 83.7 fL (80-100); MEAN PLATELET VOLUME 7.3 fL (7.4-10.4); MONOCYTES # (AUTO) 0.42 x10^3/uL (0.2-0.8); MONOCYTES % (AUTO) 11 % (2-9); NEUTROPHILS # (AUTO) 2.48 x10^3/uL (1.8-6.8); NEUTROPHILS % (AUTO) 66 % (42-75); PLATELET COUNT 106 x10^3/uL (130-400)
[2018-03-11 05:18] LABS: CHLORIDE 101 mmol/L (98-107)
[2018-03-11 05:29] LABS: ALANINE AMINOTRANSFERASE 25 U/L (12-78); ALBUMIN 2.3 g/dL (3.4-5.0); ALKALINE PHOSPHATASE 161 U/L (45-117); ANION GAP 9 mmol/L (5-15); BILIRUBIN,TOTAL 0.6 mg/dL (0.2-1.0); CALCIUM 8.2 mg/dL (8.5-10.1); CREATININE 1.69 mg/dL (0.55-1.02); TOTAL PROTEIN 5.3 g/dL (6.4-8.2)
[2018-03-11 06:46] VITALS: BP 166/63
[2018-03-11] MEDS: INSULIN LISPRO 100 UNITS/ML, PEN SQ-INSULIN SCH ×2 (07:00→11:00)
[2018-03-11] MEDS: SUCRALFATE 1 GM TABLET PO SCH ×2 (07:58→12:18)
[2018-03-11] MEDS: CALCITONIN NASAL 200 UNITS/0.09ML, 3.7ML NAS SCH (09:00)
[2018-03-11] MEDS: TEMPLATE NON-FORMULARY MED. (Glucosamine Hcl** 1,500 MG) HOMEMEDPO SCH (09:00)
[2018-03-11] MEDS: LACTULOSE 20 GM/30 ML UDC PO SCH ×2 (09:00→09:07)
[2018-03-11] MEDS: SENNA/DOCUSATE TABLET PO SCH (09:00)
[2018-03-11] MEDS: ALLOPURINOL 100 MG TABLET PO SCH (09:04)
[2018-03-11] MEDS: LISINOPRIL 20 MG TABLET PO SCH (09:04)
[2018-03-11] MEDS: OMEPRAZOLE 20 MG CAPSULE.DR PO SCH (09:05)
[2018-03-11] MEDS: METOPROLOL TARTRATE 25 MG TABLET PO SCH (09:05)
[2018-03-11] MEDS: SODIUM CHLORIDE FLUSH 10ML SYR IVF SCH (09:05)
[2018-03-11] MEDS: FUROSEMIDE 20 MG/2 ML IV SCH (09:06)
[2018-03-11] MEDS ORDERED: LACT20SO13 PO (13:03)
[2018-03-11] MEDS ORDERED: FURO40TA6 PO (13:03)
[2018-03-11] MEDS ORDERED: SUCR1TAB33 PO (13:03)
[2018-03-11] MEDS ORDERED: METO50TA82 PO (13:03)
== END 2018-03-11 15:13 | disposition home or self-care (01) | DRG 441 ==
LOC: ED 19:40 → EDIP 19:56 → 4WST 21:48 → DCLOUNGE 03-11 15:01
PROVIDERS: ADMIT Hospitalist; ATTEND Hospitalist
DX: K72.90 Hepatic failure, unspecified without coma (principal); E43 Unspecified severe protein-calorie malnutrition; J18.9 Pneumonia, unspecified organism; I50.43 Acute on chronic combined systolic (congestive) and diastolic (congestive) heart failure; D69.6 Thrombocytopenia, unspecified; E11.21 Type 2 diabetes mellitus with diabetic nephropathy; E11.22 Type 2 diabetes mellitus with diabetic chronic kidney disease; E87.1 Hypo-osmolality and hyponatremia; I13.0 Hypertensive heart and chronic kidney disease with heart failure and stage 1 through stage 4 chronic kidney disease, or unspecified chronic kidney disease; K76.6 Portal hypertension; J44.0 Chronic obstructive pulmonary disease with (acute) lower respiratory infection; D64.9 Anemia, unspecified; Z68.37 Body mass index [BMI] 37.0-37.9, adult; E78.5 Hyperlipidemia, unspecified; K70.31 Alcoholic cirrhosis of liver with ascites; N18.3 Chronic kidney disease, stage 3 (moderate); Z88.0 Allergy status to penicillin; Z88.2 Allergy status to sulfonamides; Z88.5 Allergy status to narcotic agent; Z88.8 Allergy status to other drugs, medicaments and biological substances; Z85.41 Personal history of malignant neoplasm of cervix uteri; Z90.49 Acquired absence of other specified parts of digestive tract
CPT/HCPCS: 36415; 49083; 74022; 74176; 76700; 80053; 81001; 82140; 82962; 83690; 83880; 85025; 85610; 99285; J1644; J3490; J1940